=== PATIENT | male | born 1975 | race Caucasian/White ===

== ENCOUNTER 2022-08-24 03:39 | Emergency (ER) | payer MEDICAID ==
[2022-08-24] MEDS ORDERED: Ketorolac 30 MG/ML SDV IM STA (04:04)
== END 2022-08-24 05:05 | disposition home or self-care (01) ==
LOC: FB.ED 03:39
DX: M16.11 Unilateral primary osteoarthritis, right hip (principal)
CPT/HCPCS: 73501-RT; 99283; 99284